=== PATIENT | female | born 1940 | race Caucasian/White ===

== ENCOUNTER → 2017-08-14 | Outpatient (REF) | payer MEDICARE ==
[~2017-08-14] MED LIST: VITAMIN D
[2017-08-14 19:35] LABS: MEAN CORPUSCULAR HEMOGLOBIN 30.6 pg (27.0-33.0); MEAN CORPUSCULAR HGB CONC 33.3 g/dl (32.0-36.5); PLATELET COUNT, AUTOMATED 206 10^3/uL (150-450); RED CELL DISTRIBUTION WIDTH 12.9 % (11.5-14.5); WHITE BLOOD COUNT 6.7 10^3/uL (4.0-10.0)
[2017-08-14 19:48] LABS: ALBUMIN 3.8 GM/DL (3.2-5.2); ALBUMIN/GLOBULIN RATIO 1.12 (1.00-1.93); ALKALINE PHOSPHATASE 54 U/L (45-117); ALT/SGPT 17 U/L (12-78); ANION GAP 7 MEQ/L (8-16); AST/SGOT 13 U/L (15-37); BILIRUBIN,TOTAL 0.5 MG/DL (0.2-1.0); BLOOD UREA NITROGEN 16 MG/DL (7-18); CALCIUM LEVEL 9.2 MG/DL (8.8-10.2); CARBON DIOXIDE LEVEL 30 MEQ/L (21-32); CHLORIDE LEVEL 105 MEQ/L (98-107); CHOLESTEROL LEVEL 218 MG/DL (<200); CREATININE FOR GFR 0.83 MG/DL (0.55-1.02); FREE T4 1.13 NG/DL (0.76-1.46); GLOMERULAR FILTRATION RATE > 60.0 (>39); GLUCOSE, FASTING 91 MG/DL (83-110); POTASSIUM SERUM 4.2 MEQ/L (3.5-5.1); SODIUM LEVEL 142 MEQ/L (136-145); TOTAL PROTEIN 7.2 GM/DL (6.4-8.2); TRIGLYCERIDES LEVEL 107 MG/DL (<150)
== END ==
LOC: M SFHCADAM 14:10
PROVIDERS: ATTEND Family Medicine
DX: M81.0 Age-related osteoporosis without current pathological fracture (principal); E55.9 Vitamin D deficiency, unspecified; E78.2 Mixed hyperlipidemia; M15.0 Primary generalized (osteo)arthritis

== ENCOUNTER → 2017-09-16 | Outpatient (CLI) | payer MEDICARE ==
--- NOTE | 2017-09-16 09:53 | REPMRS ---
Patient History The patient states she has not had a clinical breast exam in over a year. Patient is postmenopausal. Family history of breast cancer in daughter at age 37. Digital Woman Screen Mammo: September 16, 2017 - Exam #: [id number] Bilateral CC and MLO view(s) were taken. Technologist: Amanda Garcia Technologist Prior study comparison: August 07, 2016, right breast digital mammo diagnostic unilateral, performed at [facility]. July 21, 2016, digital woman screen mammo performed at [facility]. FINDINGS: The breast tissue is heterogeneously dense. This may lower the sensitivity of mammography. There has been no change in the appearance of the mammogram from the prior studies. There is a moderate amount of residual fibroglandular tissue which is fairly symmetric. There is no interval development of dominant mass, areas of architectural distortion, or clustered microcalcification typical of malignancy. ASSESSMENT: BI-RADS/ACR category 1 mammogram. Negative. Recommendation Routine screening mammogram in 1 year (for women over age 40). This mammogram was interpreted with the aid of an FDA-approved computer-aided dectection system. Electronically Signed By: Deepak Terrazas MD 09/16/17 0953
== END ==
LOC: M WHC 07:53
PROVIDERS: ATTEND Family Medicine
DX: Z12.31 Encounter for screening mammogram for malignant neoplasm of breast (principal)

== ENCOUNTER 2017-10-13 12:44 | Outpatient (CLI) | payer MEDICARE ==
[~2017-10-13] VITALS: Ht 167.6 cm; Wt 122.0 kg
[2017-10-13] MEDS ORDERED: ZOLEDRONIC ACID 5 MG in APPROPRIATE DILUENT 1 EA IV ONE (12:45)
== END 2017-10-13 13:50 | disposition home or self-care (01) ==
LOC: M INFU 12:44
PROVIDERS: ATTEND Family Medicine
DX: M81.0 Age-related osteoporosis without current pathological fracture (principal); Z87.891 Personal history of nicotine dependence
CPT/HCPCS: 96365; J3489

== ENCOUNTER → 2018-08-23 | Outpatient (REF) | payer MEDICARE | LOC: M LAB REF 19:00 | DX: D03.30 Melanoma in situ of unspecified part of face (principal); L57.0 Actinic keratosis; L57.8 Other skin changes due to chronic exposure to nonionizing radiation | CPT/HCPCS: 88305 ==

== ENCOUNTER → 2018-10-21 | Outpatient (CLI) | payer MEDICARE ==
--- NOTE | 2018-10-21 15:38 | REPMRS ---
Patient History The patient states she has not had a clinical breast exam in over a year. Patient is postmenopausal. Family history of breast cancer at age 37 in daughter. No Hormone Replacement Therapy 3D TOMOSYNTHESIS WAS PERFORMED. Digital Woman Screen Mammo: October 21, 2018 - Exam #: [id number] Bilateral CC and MLO view(s) were taken. Technologist: Ashia Keith, Technologist Prior study comparison: September 16, 2017, digital woman screen mammo performed at [facility]. August 07, 2016, right breast digital mammo diagnostic unilateral, performed at [facility]. FINDINGS: The breast tissue is heterogeneously dense. This may lower the sensitivity of mammography. There has been no change in the appearance of the mammogram from the prior studies. There is a moderate amount of residual fibroglandular tissue which is fairly symmetric. There is no interval development of dominant mass, areas of architectural distortion, or clustered microcalcification typical of malignancy. Assessment: BI-RADS/ACR category 1 mammogram. Negative. Recommendation Routine screening mammogram in 1 year (for women over age 40). This mammogram was interpreted with the aid of an FDA-approved computer-aided dectection system. Electronically Signed By: Deepak Terrazas MD 10/21/18 [id number]
== END ==
LOC: M WHC 14:19
PROVIDERS: ATTEND Family Medicine
DX: Z12.31 Encounter for screening mammogram for malignant neoplasm of breast (principal); Z80.3 Family history of malignant neoplasm of breast; N60.31 Fibrosclerosis of right breast; N60.32 Fibrosclerosis of left breast

== ENCOUNTER 2018-12-06 09:44 | Outpatient (CLI) | payer MEDICARE ==
[~2018-12-06] VITALS: Ht 167.6 cm; Wt 55.9 kg
[2018-12-06 10:25] VITALS: BP 144/63
[2018-12-06] MEDS ORDERED: ZOLEDRONIC ACID 5 MG in APPROPRIATE DILUENT 1 EA IV ONE (10:30)
[2018-12-06] MEDS ORDERED: CALCTAB89 PO (10:41)
[2018-12-06 11:15] VITALS: BP 132/73
== END 2018-12-06 11:15 | disposition home or self-care (01) ==
LOC: M INFU 09:44
PROVIDERS: ATTEND Family Medicine
DX: M81.0 Age-related osteoporosis without current pathological fracture (principal)
CPT/HCPCS: 96374; J3489

== ENCOUNTER → 2019-02-28 | Outpatient (REF) | payer MEDICARE ==
[~2019-02-28] MED LIST changes: +CALCTAB89 PO
== END ==
LOC: M SFHCPLAZ 13:47
PROVIDERS: ATTEND Dermatology
DX: L82.1 Other seborrheic keratosis (principal)

== ENCOUNTER → 2019-09-14 | Outpatient (REF) | payer MEDICARE ==
[2019-09-14 12:58] LABS: HEMATOCRIT 41.8 % (36.0-47.0); HEMOGLOBIN 13.8 g/dl (12.0-15.5); MEAN CORPUSCULAR HEMOGLOBIN 31.2 pg (27.0-33.0); MEAN CORPUSCULAR VOLUME 94.4 fl (80.0-96.0); PLATELET COUNT, AUTOMATED 199 10^3/uL (150-450); RED BLOOD COUNT 4.43 10^6/uL (4.00-5.40)
[2019-09-14 13:09] LABS: ALBUMIN 3.7 GM/DL (3.2-5.2); ALT/SGPT 20 U/L (12-78); BILIRUBIN,TOTAL 0.4 MG/DL (0.2-1.0); BLOOD UREA NITROGEN 16 MG/DL (7-18); CALCIUM LEVEL 9.7 MG/DL (8.8-10.2); CARBON DIOXIDE LEVEL 30 MEQ/L (21-32); CHLORIDE LEVEL 107 MEQ/L (98-107); CHOLESTEROL LEVEL 216 MG/DL (<200); CREATININE FOR GFR 0.89 MG/DL (0.55-1.30); FREE T4 1.11 NG/DL (0.76-1.46); GLOMERULAR FILTRATION RATE > 60.0 (>39); GLUCOSE, FASTING 91 MG/DL (70-100); HDL CHOLESTEROL 80 MG/DL (>40); LDL CHOLESTEROL 116 MG/DL (<100); NON-HDL-C 136 MG/DL; POTASSIUM SERUM 4.8 MEQ/L (3.5-5.1); SODIUM LEVEL 142 MEQ/L (136-145); TRIGLYCERIDES LEVEL 101 MG/DL (<150)
[2019-09-14 13:10] LABS: TOTAL 25(OH) VITAMIN D 77.7 NG/ML (30.0-100.0)
== END ==
LOC: M SFHCADAM 09:47
PROVIDERS: ATTEND Family Medicine
DX: E78.2 Mixed hyperlipidemia (principal); E55.9 Vitamin D deficiency, unspecified; F43.22 Adjustment disorder with anxiety

== ENCOUNTER → 2019-12-21 | Outpatient (CLI) | payer MEDICARE ==
--- NOTE | 2019-12-21 15:14 | REP ---
BILATERAL SCREENING DIGITAL MAMMOGRAM WITH 3D TOMOSYNTHESIS: There are no palpable abnormalities or other breast complaints. The the patient states she has not had a clinical breast examination in over a year. The [facility] Lifetime Breast Cancer Risk Score is: 3.9% . Comparison is 04/26/2014. The breasts are heterogeneously dense, which could obscure small masses. There is no dominant mass, micro calcific cluster or architectural distortion that would indicate malignancy. There are benign calcifications. There are no additional findings on 3D tomosynthesiss. There is no change from the prior study. Impression: BIRADS/ACR category 2 mammogram. Benign findings. Recommendation: Routine annual screening mammography. Because of the increased breast density, annual adjunctive breast MRI in addition to screening mammography is recommended. These can be performed at alternating six month intervals. This mammogram was interpreted with the aid of a FDA approved computer-aided detection system. A. Negative mammogram reports should not delay biopsy if a dominant or clinically suspicious mass is present. B. Not all breast cancers are identified by mammography or tomosynthesis. C. Adenosis and dense breasts may obscure an underlying neoplasm. Patient letter M1 dense breasts. Electronically Signed by Deepak Dillon MD 12/21/2019 03:05 P
== END ==
LOC: M WHC 10:49
PROVIDERS: ATTEND Family Medicine
DX: Z12.31 Encounter for screening mammogram for malignant neoplasm of breast (principal)

== ENCOUNTER → 2020-03-07 | Outpatient (REF) | payer MEDICARE | LOC: M LAB REF 18:14 | PROVIDERS: ATTEND Dermatology | DX: D22.39 Melanocytic nevi of other parts of face (principal); L57.8 Other skin changes due to chronic exposure to nonionizing radiation; L57.0 Actinic keratosis ==

== ENCOUNTER → 2020-09-06 | Outpatient (REF) | payer MEDICARE ==
[2020-09-06 16:51] LABS: ALBUMIN 3.8 GM/DL (3.2-5.2); ALT/SGPT 17 U/L (12-78); BILIRUBIN,TOTAL 0.4 MG/DL (0.2-1.0); BLOOD UREA NITROGEN 13 MG/DL (7-18); CALCIUM LEVEL 9.3 MG/DL (8.8-10.2); CARBON DIOXIDE LEVEL 29 MEQ/L (21-32); CHLORIDE LEVEL 106 MEQ/L (98-107); CHOLESTEROL LEVEL 222 MG/DL (<200); CHOLESTEROL RISK RATIO 2.775 (<5); CREATININE FOR GFR 0.93 MG/DL (0.55-1.30); FREE T4 1.21 NG/DL (0.76-1.46); GLOMERULAR FILTRATION RATE > 60.0 (>39); GLUCOSE, FASTING 107 MG/DL (70-100); HDL CHOLESTEROL 80 MG/DL (>40); LDL CHOLESTEROL 126 MG/DL (<100); NON-HDL-C 142 MG/DL; POTASSIUM SERUM 4.4 MEQ/L (3.5-5.1); SODIUM LEVEL 141 MEQ/L (136-145); TOTAL PROTEIN 6.7 GM/DL (6.4-8.2); TRIGLYCERIDES LEVEL 78 MG/DL (<150)
[2020-09-06 16:58] LABS: TOTAL 25(OH) VITAMIN D 87.5 NG/ML (30.0-100.0)
== END ==
LOC: M SFHCADAM 11:38
PROVIDERS: ATTEND Family Medicine
DX: M81.0 Age-related osteoporosis without current pathological fracture (principal); E55.9 Vitamin D deficiency, unspecified; E78.2 Mixed hyperlipidemia; F43.22 Adjustment disorder with anxiety

== ENCOUNTER 2021-01-03 15:38 | Outpatient (CLI) | payer MEDICARE ==
[~2021-01-03] VITALS: Ht 167.6 cm; Wt 56.3 kg
[~2021-01-03 15:38] MED LIST changes: +ZOLEDRONIC ACID 5 MG in IV 1 EA IV ONE
[2021-01-03 15:45] VITALS: BP 158/87
[2021-01-03 16:30] VITALS: BP 150/74
== END 2021-01-03 16:30 | disposition home or self-care (01) ==
LOC: M INFU 15:38
PROVIDERS: ATTEND Family Medicine
DX: M81.0 Age-related osteoporosis without current pathological fracture (principal)
CPT/HCPCS: 96365; J3489

== ENCOUNTER → 2021-01-08 | Outpatient (CLI) | payer MEDICARE ==
[~2021-01-08] MED LIST changes: -ZOLEDRONIC ACID 5 MG in IV 1 EA IV ONE
--- NOTE | 2021-01-08 09:02 | REPMRS ---
Patient History The patient states she has not had a clinical breast exam in over a year. Family history of breast cancer at age 37 in daughter. No Hormone Replacement Therapy Digital Woman Screen Mammo: January 08, 2021 - Exam #: [id number] Bilateral CC and MLO view(s) were taken. Technologist: Maryjo Dowell, Technologist Prior study comparison: December 21, 2019, bilateral digital woman screen mammo performed at [facility]. October 21, 2018, bilateral digital woman screen mammo performed at [facility]. September 16, 2017, digital woman screen mammo performed at [facility]. FINDINGS: The breast tissue is heterogeneously dense. This may lower the sensitivity of mammography. The [facility] volumetric breast density category is: C. There is a moderate amount of heterogeneously dense fibroglandular tissue which is fairly symmetric. There is no interval development of dominant mass, architectural distortion, or grouped microcalcification typical of malignancy. There has been no change in the appearance of the mammogram from the prior studies. 3-D tomosynthesis shows no additional findings. Assessment: BI-RADS/ACR category 1 mammogram. Negative Mammogram. Recommendation Routine screening mammogram of both breasts in 1 year (for women over age 40). This patient's [facility] Lifetime Breast Cancer RIsk is estimated at 3.4 %. This mammogram was interpreted with the aid of an FDA-approved computer-aided dectection system. Electronically Signed By: Vignesh Chau MD 01/08/21 0901
== END ==
LOC: M WHC 08:00
PROVIDERS: ATTEND Family Medicine
DX: Z12.31 Encounter for screening mammogram for malignant neoplasm of breast (principal)

== ENCOUNTER → 2021-01-30 | Outpatient (CLI) | payer MEDICARE ==
--- NOTE | 2021-01-30 09:40 | REP ---
INDICATION: ARTHRITIS. COMPARISON: 06/19/2016. TECHNIQUE: There are five views. FINDINGS: There is diffuse demineralization. Vertebral body heights, interspacing and alignment are normal except for mild grade 1 anterolisthesis of L4 on 5. This is unchanged and likely secondary to the facet osteoarthritis and joint space narrowing. There is no spondylolysis or spondylolisthesis. There is disc calcification at L2-3 compatible with degenerative disc disease, however no disc space narrowing. There is facet osteoarthritis more severe at the lower lumbar levels, unchanged. The pedicles are unremarkable. Sacroiliac articulations are unremarkable. There is mild scoliosis convex left as an interval change, possibly positional. And unchanged. There are no compression deformities. IMPRESSION: There is no significant interval change except for disc calcification now visible at L2-3 compatible with degenerative disc disease, however there is no associated disc space narrowing. Facet osteoarthritis, more severe at the lower lumbar levels, resulting in degenerative mild grade 1 spondylolisthesis of L4 on 5. This is unchanged. Demineralization. Mild scoliosis convex left as an interval change, possibly positional. <Electronically signed by Deepak Dillon > 01/30/21 0936
--- NOTE | 2021-01-30 09:43 | REP ---
INDICATION: ARTHRITIS COMPARISON: None. TECHNIQUE: There are four views. FINDINGS: There is erosive osteoarthritis of the index finger through 5th digit PIP articulations. The middle finger PIP is fused as a chronic arthritic change. There is joint space narrowing and cortical eburnation of the DIP articulations of the index through ring fingers compatible with osteoarthritis. There is fusion of the 5th digit DIP compatible with chronic osteoarthritis. The MCP articulations and thumb IP articulation are unremarkable. There is osteoarthritis at the scaphoid trapezial articulation. There is diffuse demineralization. There calcifications in the triangular fibrocartilage compatible with CPPD. IMPRESSION: Advanced osteoarthritis as described. CPPD as described. <Electronically signed by Deepak Dillon > 01/30/21 0937
== END ==
LOC: M ADAMS 08:51
PROVIDERS: ATTEND Family Medicine
DX: M51.36 Other intervertebral disc degeneration, lumbar region (principal); M19.041 Primary osteoarthritis, right hand; M54.5 Low back pain

== ENCOUNTER → 2021-02-25 | Outpatient (CLI) | payer MEDICARE ==
--- NOTE | 2021-02-25 09:55 | REP ---
INDICATION: PAIN RIGHT KNEE. COMPARISON: None. TECHNIQUE: AP, lateral, bilateral oblique, sunrise and tunnel views of the right knee. FINDINGS: Age-related osteopenia and advanced tricompartmental osteoarthritic degenerative changes are appreciated. Findings include cortical irregularity, osteophytosis, subchondral sclerosis, joint space narrowing, and chondrocalcinosis. There is no evidence for acute fracture or dislocation. Lateral view demonstrates presumed musculotendinous calcifications presumed to be within the quadriceps superior to the patella. IMPRESSION: Advanced tricompartmental osteoarthritic degenerative changes. <Electronically signed by Bobby Sharma > 02/25/21 0906
== END ==
LOC: M SOG 07:51
PROVIDERS: ATTEND Orthopaedic Surgery Sports Medicine
DX: M17.11 Unilateral primary osteoarthritis, right knee (principal)

== ENCOUNTER 2021-05-05 15:32 | Inpatient (IN) | payer MEDICARE ==
[~2021-05-05] VITALS: Ht 167.6 cm; Wt 57.1 kg
[2021-05-05 16:30] LABS: BASO # 0.1 10^3/uL (0.0-0.2); BASO % 0.4 % (0.0-1.0); EOS # 0.1 10^3/uL (0.0-0.5); EOS % 0.9 % (0.0-3.0); HEMATOCRIT 38.1 % (36.0-47.0); HEMOGLOBIN 12.6 g/dl (12.0-15.5); LYMPH # 1.7 10^3/uL (1.5-5.0); LYMPH % 14.7 % (24.0-44.0); MEAN CORPUSCULAR HEMOGLOBIN 30.5 pg (27.0-33.0); MEAN CORPUSCULAR HGB CONC 33.1 g/dl (32.0-36.5); MEAN CORPUSCULAR VOLUME 92.3 fl (80.0-96.0); MONO # 0.6 10^3/uL (0.0-0.8); MONO % 5.7 % (2.0-8.0); NEUTROPHILS # 8.7 10^3/uL (1.5-8.5); NEUTROPHILS % 76.4 % (36.0-66.0); PLATELET COUNT, AUTOMATED 173 10^3/uL (150-450); RED BLOOD COUNT 4.13 10^6/uL (4.00-5.40); WHITE BLOOD COUNT 11.3 10^3/uL (4.0-10.0)
--- NOTE | 2021-05-05 16:50 | REP ---
INDICATION: trauma Nontraumatic hip pain. COMPARISON: None. TECHNIQUE: Frontal view of the pelvis with neutral and frog lateral views of the right hip. FINDINGS: Acute angulated right femoral neck fracture. Nondisplaced fracture of the right inferior pubic ramus is also noted. IMPRESSION: Acute angulated fracture of the right femoral neck and nondisplaced fracture of the right inferior pubic ramus. <Electronically signed by Bobby Sharma > 05/05/21 [id number]
--- NOTE | 2021-05-05 16:51 | REP ---
INDICATION: fall COMPARISON: None. TECHNIQUE: Portable AP view of the chest FINDINGS: The mediastinum and cardiac silhouette are within normal limits for portable technique. The lung marroquin are clear without acute consolidation, effusion, or pneumothorax. Skeletal structures are intact. IMPRESSION: No acute cardiopulmonary process appreciated. <Electronically signed by Bobby Sharma > 05/05/21 [id number]
[2021-05-05 16:52] LABS: BLOOD UREA NITROGEN 16 MG/DL (7-18); CALCIUM LEVEL 8.6 MG/DL (8.8-10.2); CARBON DIOXIDE LEVEL 28 MEQ/L (21-32); CHLORIDE LEVEL 107 MEQ/L (98-107); CREATININE FOR GFR 0.82 MG/DL (0.55-1.30); GLOMERULAR FILTRATION RATE > 60.0 (>39); GLUCOSE, FASTING 100 MG/DL (70-100); POTASSIUM SERUM 3.6 MEQ/L (3.5-5.1); SODIUM LEVEL 143 MEQ/L (136-145)
[2021-05-05 18:00] LABS: INR 0.99; PROTHROMBIN TIME 13.3 SECONDS (12.5-14.3)
[2021-05-05 18:01] LABS: PARTIAL THROMBOPLASTIN TIME 27.5 SECONDS (24.2-38.5)
[2021-05-05] MEDS ORDERED: NALOXONE INJ 0.4MG/1ML VIAL (J2310 PER 1MG) IV PRN (18:15)
[2021-05-05] MEDS ORDERED: MORPHINE 4 MG/ML 1ML VIAL/SYRINGE (J2270) IV PRN (18:15)
[2021-05-05] MEDS ORDERED: NORCO, ANEXSIA 5/325MG TABLET (HYDROcodone/ACETAMINOPHEN) PO PRN (18:15)
[2021-05-05 18:24] LABS: RSV AMPLIFICATION NEGATIVE (NEGATIVE)
[2021-05-05] MEDS: METOPROLOL 5 MG/5 ML VIAL IV SCH ×2 (18:25→19:10)
--- NOTE | 2021-05-05 18:26 | CR ---
CONSULTATION DATE: 05/05/2021 REASON FOR CONSULTATION: Right hip pain. CHIEF COMPLAINT: Right hip pain. HISTORY OF PRESENT ILLNESS: The patient is a 80-year-old, very active healthy lady who was cleaning in the kitchen today when she tripped over her feet and fell onto her right hip with severe onset of pain in her right hip and with inability to bear weight. She presented to the emergency department for evaluation and orthopedics was consulted after determining she had a right hip fracture. Otherwise, she has no other areas of pain to speak of. PAST MEDICAL HISTORY: Noncontributory. PAST SURGICAL HISTORY: Noncontributory. MEDICATIONS: None. ALLERGIES: None. SOCIAL HISTORY: She is very active. She walks four to five miles every day. REVIEW OF SYSTEMS: A 10-point review of systems was reviewed and all are negative except as in the history of present illness (HPI). PHYSICAL EXAMINATION: GENERAL: Well-developed, well-nourished, no acute distress. NEUROLOGIC: Alert and oriented times four. PSYCHOLOGIC: Normal mood and affect. CARDIAC: Regular rate and rhythm. RESPIRATORY: Nonlabored breathing. Equal chest rise and fall. ABDOMEN: Nontender. SKIN: Intact, no ecchymosis, swelling or breaks in the skin. MUSCULOSKELETAL: Focused exam of the right lower extremity demonstrates a shortened and externally rotated right lower extremity. The patient has limited range of motion of the knee and hip secondary to pain in the hip alone. She has tenderness to palpation to groin. No tenderness to palpation in the thigh, knee, leg, ankle or foot. She has sensation intact to light touch in the sural, saphenous, deep peroneal (DP) and superficial peroneal (SP) and tibial nerves. Motor intact to exterior hallucis longus (EHL), flexor hallucis longus (FHL), gastroc soleus complex, tibialis anterior. She has 2+ dorsalis pedis (DP) and posterior tibialis (PT) pulses with brisk capillary refill in all the digits. IMAGING DATA: I reviewed the radiographs of the right hip. They demonstrate a displaced femoral neck fracture as well as a nondisplaced inferior pubic ramus fracture. ASSESSMENT: This is a 80-year-old female with a right displaced femoral neck fracture. PLAN: I had a long discussion with the patient about the nature of the condition and treatment options. Because I have a limited expertise in hip arthroplasty, I have discussed this with another one of the surgeons who is willing to take on her case, Dr. Betancourt. She is going to be admitted tonight by hospitalist and will likely go to the operating room tomorrow for a right hip arthroplasty. I will be transferring her orthopedic care to Dr. Betancourt tomorrow.
[2021-05-05] MEDS ORDERED: LEVALBUTEROL 1.25 MG/0.5 ML CONCENTRATE NEB INH PRN (18:35)
[2021-05-05] MEDS ORDERED: ONDANSETRON 4MG/2ML VIAL IV ONE (19:00)
[2021-05-05] MEDS ORDERED: D31000TA2 PO (19:03)
[2021-05-05 19:10] VITALS: BP_SYST 133
[2021-05-05] MEDS ORDERED: CALC600T86 PO (19:15)
--- NOTE | 2021-05-05 19:17 | HPE ---
HISTORY AND PHYSICAL DATE OF ADMISSION: 05/05/2021 CHIEF COMPLAINT: Fall, right hip fracture. HISTORY OF PRESENT ILLNESS: A 80-year-old, DO NOT RESUSCITATE (DNR)/DO NOT INTUBATE (DNI) female with history of vitamin D deficiency, osteoporosis on chronic Reclast, vitamin D and calcium, osteoarthritis, and colonic polyp in 2012, which was not retrieved, prior history of tubal ligation and bilateral cataract, surgery, was in her usual state of health until today when she fell in the kitchen, as she was turning, fell on her right side, injuring her right hip without loss of consciousness or head trauma. Patient had no prodromal symptoms. Denies any chest pain, pressure, tightness, lightheadedness or dizziness prior to that episode. She had no fever, chills, cough, shortness of breath, nausea, vomiting, diarrhea, hematemesis, coffee-ground emesis, bright red blood per rectum, melena, black tarry stools. Denies any dysuria, urgency, frequency, fever, chills, flank pain, muscle aches, joint pain and had no loss of consciousness. In the emergency room (ER), she was found to have right hip fracture as well as pubic fractures. Her called for help and she was brought in by ambulance. Per orthopedic surgery, patient will be taken to the operating room (OR) in the morning for right hip open reduction internal fixation (ORIF). Otherwise, denies any prior history of coronary artery disease (CAD), myocardial infarction (MO) or congestive heart failure. Blood pressure in the ER was 178/85 with pulse 96, given two doses of intravenous (IV) metoprolol and given as needed metoprolol 25 mg every 6 hours. Her pain was 5/10. No medications were taken at home. In the hospital, she was given intravenous Morphine 3 mg every 2 hours for breakthrough pain and [place] 1-2 tablets for pain. PAST MEDICAL HISTORY: 1. Osteoporosis. 2. Asthma. 3. Arthritis. 4. Vitamin D deficiency. 5. Colonic polyp. ALLERGIES: No known drug allergies. PAST SURGICAL HISTORY: 1. Tubal ligation. 2. Colonoscopy with colon polyp. 3. Bilateral cataract surgery. FAMILY HISTORY: Mother and father are . Mother had rheumatoid arthritis (RA) and hypertension. Both siblings of stomach cancer. SOCIAL HISTORY: Former smoker. Quite more than 10 years ago. Retired. No recreational drug use. Previously worked in day care. Walks daily. . Lives with spouse at home. HOME MEDICATIONS: 1. Reclast IV 2. vitamin D 2000 units daily 3. calcium with vitamin D 600/400 mg one tablet twice a day 4. Advil 200 mg as needed every 6 hours. 5. vitamin B12 100 mcg daily 6. tumeric 7. flaxseed oil REVIEW OF SYSTEMS: As per history of present illness (HPI). A 12-point system otherwise negative. PHYSICAL EXAMINATION: VITAL SIGNS: Temperature 97.2, pulse 96, respiratory rate 18, blood pressure 178/85, 95% on room air. GENERAL: Patient is awake, alert, oriented times three. Speech is fluent. HEENT: Tongue is midline. Face is symmetric. No jugular venous distention (JVD), thyromegaly or cervical adenopathy. LUNGS: Clear to auscultation. No wheezing, rales or rhonchi. HEART: S1, S2. Sinus rhythm. No murmurs, rubs or gallops. ABDOMEN: Soft, nontender, nondistended. Positive bowel sounds. EXTREMITIES: Right lower extremity is externally rotated, warm to touch, pink skin color. Patient's dorsalis pedis and posterior tibialis pulses are 2+ bilaterally. There is no pitting edema or cyanosis. LABORATORY DATA: EKG: Sinus rhythm, ventricular rate of 108 with an incomplete right bundle branch block. White count 11.3, hemoglobin 12, hematocrit 38, platelet count 173. Sodium 143, potassium 3.6, chloride 107, bicarbonate 28, BUN 16, creatinine 0.82, glucose 100. INR 0.99, PT 13.3, PTT27. Coronavirus-19 is negative. Chest x-ray: No acute cardiopulmonary process. Hip x-ray: Acute angulated right femoral neck fracture, nondisplaced fracture of the inferior pubic ramus is also noted. ASSESSMENT: A 80-year-old female with history of asthma, osteoporosis, vitamin D deficiency, osteoarthritis, presents with a mechanical fall at home with no prodromal symptoms, found to have an acute angulated right femoral neck fracture and right inferior pubic ramus fracture. Patient will be admitted as an inpatient for the following acute issues: 1. Medical clearance. Patient is medically optimized. Patient has been given metoprolol 25 mg by mouth every 6 hours for systolic pressure greater than 150 and diastolic pressure greater than 90. Nebulizer treatment as needed. Currently has clear lungs. No acute coronary ischemic symptoms. No heart failure on chest x-ray. As needed Xopenex for her asthma. Patient is medically optimized to proceed to surgery in the morning. Nothing by mouth (NPO) after midnight. Intravenous (IV) fluids to start at 5:00 a.m. Patient may eat a 2 gram sodium diet this evening. Deep venous thrombosis (DVT) prophylaxis with compression stockings preoperatively. Bedpan and bedrest for now. 2. Right femoral neck fracture. Orthopedic surgery, Dr. Bustamante, has been consulted, Nothing by mouth (NPO) after midnight. Oral and IV pain medications for now. Patient is on no anticoagulant or antiplatelet therapy. May proceed to surgery in the morning. 3. Osteoporosis and history of vitamin D deficiency. Patient has recently received Reclast. She may receive vitamin D postoperatively. 4. History of asthma. As needed nebulizers. 5. CODE STATUS: DO NOT RESUSCITATE (DNR)/DO NOT INTUBATE (DNI). Healthcare proxy present at the bedside.
[2021-05-05] MEDS ORDERED: METOPROLOL TART 25 MG TABLET PO PRN (20:00)
[2021-05-05 22:15] VITALS: BP 150/73
[2021-05-05] MEDS: NORCO, ANEXSIA 5/325MG TABLET (HYDROcodone/ACETAMINOPHEN) PO PRN (22:22)
[2021-05-05] MEDS ORDERED: ONDANSETRON 4MG/2ML VIAL IV PRN (23:00)
[2021-05-06] MEDS ORDERED: D5W/0.45% SODIUM CHLORIDE 1,000 ML IV SCH (05:00)
[2021-05-06] MEDS: NORCO, ANEXSIA 5/325MG TABLET (HYDROcodone/ACETAMINOPHEN) PO PRN (05:16)
[2021-05-06 06:00] VITALS: BP 158/74
[2021-05-06 08:48] LABS: HEMOGLOBIN 12.3 g/dl (12.0-15.5); MEAN CORPUSCULAR HEMOGLOBIN 30.4 pg (27.0-33.0); MEAN CORPUSCULAR HGB CONC 33.2 g/dl (32.0-36.5); MEAN CORPUSCULAR VOLUME 91.6 fl (80.0-96.0); PLATELET COUNT, AUTOMATED 137 10^3/uL (150-450); RED BLOOD COUNT 4.04 10^6/uL (4.00-5.40); WHITE BLOOD COUNT 10.4 10^3/uL (4.0-10.0)
[2021-05-06 09:26] LABS: BLOOD UREA NITROGEN 16 MG/DL (7-18); CALCIUM LEVEL 8.4 MG/DL (8.8-10.2); CARBON DIOXIDE LEVEL 26 MEQ/L (21-32); CHLORIDE LEVEL 110 MEQ/L (98-107); CREATININE FOR GFR 0.83 MG/DL (0.55-1.30); GLOMERULAR FILTRATION RATE > 60.0 (>39); GLUCOSE, FASTING 117 MG/DL (70-100); POTASSIUM SERUM 3.7 MEQ/L (3.5-5.1); SODIUM LEVEL 142 MEQ/L (136-145)
--- NOTE | 2021-05-06 10:40 | IPN ---
PROGRESS NOTE DATE: 05/06/2021 SUBJECTIVE: The patient had a low grade temp of 101.1, but denies any chills, nausea, vomiting, abdominal pain, chest pain, pressure, tightness, cough, shortness of breath, dysuria, urgency, or frequency. The patient is n.p.o. for right ORIF of the hip status post fall at home. OBJECTIVE: VITAL SIGNS: Temperature 101.1, pulse 98, respiratory rate 18, blood pressure 158/74, 94% on room air. GENERAL: The patient is awake, alert, and oriented to person, place, and time. Answering questions appropriately. LUNGS: Clear to auscultation. No wheezing, rales, or rhonchi. HEART: S1, S2. Sinus rhythm. ABDOMEN: Soft, nontender, and nondistended. Positive bowel sounds. EXTREMITIES: Right hip is externally rotated. Dorsalis pedis and posterior tibialis intact. SKIN: Warm, dry, and pink in color. DIAGNOSTIC STUDIES: Laboratory data and imaging studies have been reviewed. ASSESSMENT: This is a 80-year-old female with history of asthma, osteoarthritis, osteoporosis, vitamin D deficiency, and colonic polyp who had a mechanical fall at home while walking in the kitchen and had a right femoral neck fracture. The patient was medically optimized to proceed to surgery. Her blood pressure was uncontrolled and she was given metoprolol 25 q. 6 for a systolic pressure greater than 130 or diastolic greater than 90. The patient had a low grade temperature 100.1. Obtain a urinalysis (UA). Continue with incentive spirometry. Chest x-ray had no acute pneumonia. IMPRESSION: 1. Mechanical fall. 2. Medical clearance. The patient is medically optimized to proceed to the operating room for right hip open reduction internal fixation (ORIF). 3. Acute right femoral neck fracture secondary to mechanical fall. 4. Hypertension, uncontrolled currently on metoprolol as needed for systolic pressure greater than 130 or diastolic greater than 90. 5. Osteoporosis and history of vitamin D deficiency status post Reclast. Will resume vitamin D and calcium supplements postoperatively. 6. History of asthma, compensated. 7. Code status. DO NOT RESUSCITATE (DNR) / DO NOT INTUBATE (DNI). 8. Deep vein thrombosis (DVT) prophylaxis currently with compression stockings. Postoperatively the patient may be started on Lovenox or Eliquis.
[2021-05-06] MEDS ORDERED: TRANEXAMIC ACID 100 MG/ML 10ML VIAL As Ordered ONE ×2 (12:51→12:52)
[2021-05-06] MEDS ORDERED: ceFAZolin 1GM VIAL (J0690 PER 500MG) As Ordered ONE (14:02)
[2021-05-06] MEDS ORDERED: ROCURONIUM BROMIDE 50 MG/5 ML VIAL As Ordered ONE ×2 (14:39→15:03)
[2021-05-06] MEDS ORDERED: METOCLOPRAMIDE INJ 10MG/2ML VIAL (J2765 PER 1) As Ordered ONE (14:39)
[2021-05-06] MEDS ORDERED: LIDOCAINE 2% 100MG/5ML SDV (FOR ANES.) As Ordered ONE (14:39)
[2021-05-06] MEDS ORDERED: ONDANSETRON 4MG/2ML VIAL As Ordered ONE (14:39)
[2021-05-06] MEDS ORDERED: SUGAMMADEX SODIUM 500 MG/5 ML VIAL (BRIDION) As Ordered ONE (14:39)
[2021-05-06] MEDS ORDERED: fentaNYL 100 MCG/2 ML INJECTION (J3010) As Ordered ONE (14:39)
[2021-05-06] MEDS ORDERED: propofoL 200 MG/20 ML VIAL As Ordered ONE (14:39)
[2021-05-06] MEDS ORDERED: MIDAZOLAM INJ 2MG/2ML VIAL (J2250 PER 1MG) As Ordered ONE (14:39)
[2021-05-06] MEDS ORDERED: ePHEDrine SULFATE 25 MG/5 ML(5MG/ML) SYRINGE As Ordered ONE (15:25)
[2021-05-06] MEDS ORDERED: PHENYLephrine 500MCG 5ML (100MCG/ML) SYRINGE As Ordered ONE (15:26)
[2021-05-06] MEDS ORDERED: ACETAMINOPHEN 1000MG 100ML IV BTL (OFIRMEV) (J0131 PER 10MG) As Ordered ONE (15:28)
[2021-05-06] MEDS ORDERED: ESMOLOL INJ 100MG/10ML VIAL As Ordered ONE ×2 (15:52→16:06)
[2021-05-06] MEDS ORDERED: ROPIVA 125MG/EPINEPH 0.25MG/CLONID 40MCG/KETOR 15MG IN NS 50ML SYRINGE PA ONE (16:00)
[2021-05-06] MEDS ORDERED: SENNA 8.6 MG TAB (SENOKOT) PO PRN (16:45)
[2021-05-06] MEDS ORDERED: ONDANSETRON 4MG/2ML VIAL IV PRN ×2 (16:45)
[2021-05-06] MEDS ORDERED: fentaNYL 100 MCG/2 ML INJECTION (J3010) IV PRN (16:45)
[2021-05-06] MEDS ORDERED: traMADol 50 MG TAB PO PRN (16:45)
[2021-05-06] MEDS ORDERED: PERCOCET 5MG/325MG TAB PO PRN (16:45)
[2021-05-06] MEDS ORDERED: METOCLOPRAMIDE INJ 10MG/2ML VIAL (J2765 PER 1) IV PRN (16:45)
[2021-05-06] MEDS ORDERED: oxyCODONE 5MG TAB PO PRN ×2 (16:45→16:50)
[2021-05-06] MEDS ORDERED: LR 1,000 ML IV SCH ×2 (16:45)
--- NOTE | 2021-05-06 16:48 | REP ---
INDICATION: POST OP IN PACU. COMPARISON: Preoperative exam yesterday TECHNIQUE: AP pelvis portable FINDINGS: There is a total right hip prosthetic device placed since the last exam. Comminuted fracture involving the inferior pubic ramus on the right again noted. There are no acute abnormalities. IMPRESSION: As above <Electronically signed by Peter Vuong > 05/06/21 [id number]
[2021-05-06 17:00] VITALS: BP 120/66
--- NOTE | 2021-05-06 17:05 | CR.PDOC ---
General Date of Consultation: May 06, 2021 Consultation REASON FOR CONSULTATION/CHIEF COMPLAINT: Right hip subcapital fracture and inferior pubic ramus fracture HISTORY OF PRESENT ILLNESS: Active 80-year-old woman had a mechanical fall yeste rday onto her right hip after tripping while doing some cleaning in the kitchen. Unable to weight-bear was seen in the emergency room and diagnosed with the right hip subcapital fracture and inferior pubic ramus fracture. The patient was admitted to the hospitalist service and was seen by my colleague Dr. Bustamante. The patient was handed over to my care for a right hip hemiarthroplasty. ALLERGIES: Please see below. HOME MEDICATIONS: Please see below. PAST MEDICAL HISTORY: Osteoporosis Remainder noncontributory PAST SURGICAL HISTORY: Noncontributory SOCIAL HISTORY: with adult children. Lives at home with her 85-year-old . She is quite active and walks 4 to 5 miles daily REVIEW OF SYSTEMS: Denies pain aside from her right hip. PHYSICAL EXAMINATION: VITAL SIGNS: Please see below. GENERAL APPEARANCE: Patient is lying in bed in no acute distress EXTREMITIES: Patient's right foot and lower extremity is shortened and internally rotated. She is able to move her toes and her ankle. She is grossly neurovascularly intact to the right foot and ankle. She has a palpable posterior tibial pulse and dorsalis pedis pulse LABORATORY DATA: Please see below. X-ray: X-ray imaging was independently reviewed by myself. This demonstrated the right hip basicervical fracture with displacement. There is also evidence of the right inferior pubic ramus fracture. ASSESSMENT/PLAN: Patient will be taken to the operating room later today for right hip hemiarthroplasty. I have discussed the procedure and the risks and benefits of the procedure with the patient and she has signed consent for this procedure including blood transfusion consent. The patient is n.p.o. on-call to the OR. Vital Signs/I&O Vital Signs Date Time Temp Pulse Resp B/P (MAP) Pulse Ox O2 Delivery O2 Flow Rate FiO2 05/06/21 16:45 99.0 106 18 137/62 (87) 99 Nasal Cannula 2.0 I&O- Last 24 Hours up to 6 AM 05/06/21 06:00 Intake Total 0 ml Output Total 0 ml Balance 0 ml Laboratory Data Labs 24H Laboratory Tests 2 05/05/21 17:37: Prothrombin Time 13.3, Prothromb Time International Ratio 0.99, Activated Partial Thromboplast Time 27.5, Coronavirus (COVID-19)(PCR) NEGATIVE, Influenza Type A (RT-PCR) NEGATIVE, Influenza Type B (RT-PCR) NEGATIVE, Respiratory Syncytial Virus (PCR) NEGATIVE 05/06/21 08:39: Nucleated Red Blood Cells % (auto) 0.0, Anion Gap 6L, Glomerular Filtration Rate > 60.0, Calcium Level 8.4L CBC/BMP Laboratory Tests 05/06/21 08:39 Allergies Coded Allergies: No Known Allergies (Verified , 11/08/08) Home Medications Scheduled Calcium Carbonate (Calcium Carbonate) 600 Mg Tablet, 600 MG PO BID, (Reported) Cholecalciferol (Vitamin D3) (Vitamin D3) 1,000 Unit Tablet, 1,000 UNITS PO DAILY, (Reported) AMRIK REVELES MD May 06, 2021 17:05
--- NOTE | 2021-05-06 17:15 | ROOPDOC ---
[facility] Report of Operation DATE OF PROCEDURE: 05/06/21 PREPROCEDURE DIAGNOSES: Right hip subcapital fracture displaced with right inferior pubic ramus fracture POSTPROCEDURE DIAGNOSES: As above PROCEDURE PERFORMED: Right hip hemiarthroplasty SURGEON: John Reveles MD CHEF DE CUISINE: MONICA assist ANESTHESIA: General ESTIMATED BLOOD LOSS: Approximately less than 150 mL. COMPLICATIONS: No known complication REMARKS: The patient denied any previous hip pain or complaints of right hip osteoarthritis prior to the fall. Press-fit femoral stem was utilized during the procedure as the patient did have some episode of labile blood pressure. Components: [place] Accolade 2 stem size; 0 collar; 46 mm monoblock head FINDINGS: Right hip subcapital fracture no significant evidence of osteoarthritic change to the acetabulum SPECIMENS REMOVED: Femoral head was removed PROCEDURE NOTE: Patient was seen in the preoperative area and the right hip was marked. DESCRIPTION OF PROCEDURE: The patient was taken to the operating room and a general anesthetic was induced after a checklist was performed. The patient was put under general anesthetic in the bed and then transferred to the operating room table where she was then transferred to the left lateral decubitus position with an axillary roll and appropriate padding. She then had a chlorhexidine wash followed by alcohol scrub x2 of her right leg followed by 2 times chlorhexidine sterile prep. She would then had a standard sterile drape performed of the right hip. After a surgical safety checklist was performed and a surgical pause was carried out, the patient was underwent an incision centered over the greater trochanteric region through skin and subcutaneous tissue down to the fascia which was split. Charnley retractor was placed. The abductors were split and a modified Shay approach was utilized. The capsule and abductors were elevated in a single layer. Bleeders were controlled with electrocautery. Once the capsule was violated with the electrocautery hematoma was expressed. This was suction. Active bleeders were controlled with electrocautery. The split was carried proximally avoiding the labrum. The fracture site was quite high as it was subcapital. This was identified. Soft tissue was skeletonized off the proximal femur to aid in retraction. The Charnley was repositioned for better view. The fracture leg was elevated and a freshening cut was performed to remove a portion of the femoral neck. This was removed and the cut appeared to be appropriate. A corkscrew T-handle was then used to remove the femoral head which was sized to approximately a 46/47. The 46 mm on checking found to have good suction in the acetabulum and was chosen for the final head size. Attention was turned to the femur where the canal finder as long as the box osteotome and rongeur were used to create an opening posterior laterally. Broaching then occurred using the Accolade 2 system this was done up to a size 6 which was found to be stable with no rotational instability and good fit. This was trialed with a standard neck monoblock hemiarthroplasty and found to provide appropriate leg length and stability. The wound was irrigated and the AXEL local anesthetic cocktail was instilled. The final size 6 Accolade 2 stem was impacted and found to have good fit. The final standard 0 neck trunnion and 46 mm head were impacted. These were reduced and found to have good stability. An irrigation then occurred. Tranexamic acid 2 g topical was instilled followed by some Betadine. This was allowed to soak for about 3 minutes. The capsule was closed with a #1 Vicryl followed by the abductors with Vicryl and running strata fix #1. The fascia was closed with a Vicryl suture #1 follo wed by a running #1 strata fix. The subcutaneous tissue was closed with #1 Vicryl followed by subcutaneous 2.0 Vicryl followed by three-point 0 Monocryl antibacterial subcuticular. Mastisol and Steri-Strips as well as a Mepilex dressing for final coverage. The patient tolerated the procedure well with no known complications PACU x-ray imaging demonstrated the prosthesis in good position without any obvious signs of complication. The patient will be partial weightbearing 50% given the fact that she does have a pubic ramus fracture on that side as well. She will need to mobilize with an ambulatory aid such as a walker. She will likely require some rehabilitation placement as she lives at home with her elderly . JOHN REVELES MD May 06, 2021 17:15
[2021-05-06 17:30] VITALS: BP 121/67
[2021-05-06 18:26] VITALS: BP 120/66
[2021-05-06] MEDS: ACETAMINOPHEN TAB 650MG DOSE (2X325MG) PO SCH (19:38)
[2021-05-06 19:56] VITALS: BP 114/65
[2021-05-06] MEDS ORDERED: ASPIRIN 81MG ENTERIC TABLET PO SCH (21:00)
[2021-05-06 21:08] VITALS: BP 111/63
[2021-05-06] MEDS: DOCUSATE SODIUM 100MG CAPSULE PO SCH (21:20)
[2021-05-06] MEDS: NAPROXEN 250 MG TAB PO SCH (21:20)
[2021-05-06] MEDS: ceFAZolin SOD 2 GM in IV 1 EA IV SCH (21:21)
[2021-05-06] MEDS: ENOXAPARIN 40MG/0.4ML SYRINGE (J1650 PER 10MG) SC SCH (21:21)
--- NOTE | 2021-05-06 21:22 | ECGEPIP ---
[facility] - ED Test Date: 2021-05-05 Pat Name: MIRANDA GALE Department: Room: - Gender: Female Executive Office Manager: MARIOSYBIL : 1940 Requested By: AMRIK CORONEL Order Number: [id number] Reading MD: Roberta Infante Measurements Intervals [place] Rate: 102 P: 77 [place]: 172 QRS: -29 QRSD: 100 T: 93 QT: 320 QTc: 417 Interpretive Statements Sinus tachycardia with occasional premature ventricular complexes and fusion complexes Incomplete right bundle branch block Minimal voltage criteria for LVH, may be normal variant ( Sumit product ) Septal infarct , age undetermined NSTTW abnormalities No prior Electronically Signed on 05-06-2021 21:21:40 EDT by Roberta Infante
[2021-05-07] MEDS: ACETAMINOPHEN TAB 650MG DOSE (2X325MG) PO SCH ×4 (00:49→17:24)
[2021-05-07 01:33] VITALS: BP 102/60
[2021-05-07] MEDS: ceFAZolin SOD 2 GM in IV 1 EA IV SCH (05:53)
[2021-05-07 06:00] VITALS: BP 101/61
[2021-05-07] MEDS ORDERED: FERR1TAB8 PO (07:58)
[2021-05-07] MEDS ORDERED: TRAM50TA2 PO (07:58)
[2021-05-07 08:31] LABS: BASO % 0.2 % (0.0-1.0); EOS # 0.1 10^3/uL (0.0-0.5); EOS % 1.3 % (0.0-3.0); HEMATOCRIT 33.5 % (36.0-47.0); HEMOGLOBIN 10.8 g/dl (12.0-15.5); LYMPH # 1.3 10^3/uL (1.5-5.0); LYMPH % 12.3 % (24.0-44.0); MEAN CORPUSCULAR HEMOGLOBIN 30.3 pg (27.0-33.0); MEAN CORPUSCULAR HGB CONC 32.2 g/dl (32.0-36.5); MEAN CORPUSCULAR VOLUME 94.1 fl (80.0-96.0); MONO # 0.5 10^3/uL (0.0-0.8); MONO % 4.9 % (2.0-8.0); NEUTROPHILS # 8.4 10^3/uL (1.5-8.5); NEUTROPHILS % 80.7 % (36.0-66.0); PLATELET COUNT, AUTOMATED 129 10^3/uL (150-450); RED BLOOD COUNT 3.56 10^6/uL (4.00-5.40); WHITE BLOOD COUNT 10.4 10^3/uL (4.0-10.0)
[2021-05-07 08:55] LABS: CALCIUM LEVEL 7.9 MG/DL (8.8-10.2); CREATININE FOR GFR 1.21 MG/DL (0.55-1.30); GLOMERULAR FILTRATION RATE 45.7 (>39); MAGNESIUM LEVEL 1.9 MG/DL (1.8-2.4); POTASSIUM SERUM 3.8 MEQ/L (3.5-5.1)
--- NOTE | 2021-05-07 09:46 | IPNPDOC ---
Text Note Date of Service The patient was seen on 05/07/21. NOTE Postop day 1 right hip hemiarthroplasty for fracture with associated right in ferior pubic ramus fracture The patient is doing much better today. She appears to be in better spirits and her pain is much better controlled. She denies any other complaints or concerns Examination of the dressing shows that the incision has not had any significant oozing. There is no staining of the dressing. There is some bruising around the incision. She is able to move her right foot and ankle. She is able to move her toes. She has intact sensation grossly to the right foot and a palpable posterior tibial pulse. Overall the patient appears to be doing much better. I did describe her injuries and the fracture to her. I would recommend high-dose calcium and vitamin C given her osteoporotic bone to help with the healing process. I will see her for follow-up tomorrow morning. She may need some acute rehab depending on how well she does with physical therapy today. She is aware that a hip fracture is not like a hip replacement and that it is a significant event in terms of impacting her lifestyle. X-ray: X-ray imaging taken in the recovery room demonstrates the right hip hemiarthroplasty prosthesis in good position without any obvious signs of complication. She will be 50% weightbearing due to the inferior pubic ramus fracture. Her weightbearing status will be reevaluated in 2 weeks. VS,Nishbone, I+O VS, Fishbone, I+O Laboratory Tests 05/07/21 08:14 Vital Signs Date Time Temp Pulse Resp B/P (MAP) Pulse Ox O2 Delivery O2 Flow Rate FiO2 05/07/21 06:00 98.6 88 18 101/61 (74) 96 Room Air 05/07/21 01:33 2.0 I&O- Last 24 Hours up to 6 AM 05/07/21 06:00 Intake Total 2400 ml Output Total 700 ml Balance 1700 ml AMRIK REVELES MD May 07, 2021 09:46
[2021-05-07] MEDS: ASCORBIC ACID 500 MG TAB PO SCH (09:54)
[2021-05-07] MEDS: FERROUS SULFATE 325MG TAB PO SCH (09:54)
[2021-05-07] MEDS: DOCUSATE SODIUM 100MG CAPSULE PO SCH ×2 (09:54→21:00)
[2021-05-07] MEDS: NAPROXEN 250 MG TAB PO SCH ×2 (09:54→21:26)
[2021-05-07 10:00] VITALS: BP 91/50
[2021-05-07] MEDS ORDERED: NS 500 ML IV ONE (11:45)
[2021-05-07 12:00] VITALS: BP 140/74
[2021-05-07] MEDS: NS 1,000 ML IV SCH (12:08)
--- NOTE | 2021-05-07 12:14 | REP ---
INDICATION: Fever. COMPARISON: Comparison chest x-ray May 05, 2021 TECHNIQUE: Portable upright AP chest radiograph. FINDINGS: The lungs are well inflated and free of infiltrate. Pleural angles are sharp. Heart size is normal. Pulmonary vasculature is not increased. IMPRESSION: No active disease. <Electronically signed by Vignesh Chau > 05/07/21 [id number]
--- NOTE | 2021-05-07 12:28 | IPNPDOC ---
Text Note Date of Service The patient was seen on 05/07/21. NOTE Subjective: Patient is a 80-year-old female with a PMHx of Vitamin D deficiency, Osteoporosis, Osteoarthritis, who presented after she had fallen while in the kitchen. On arrival to emergency room, patient was found to have a right hip fracture. Patient was admitted to the hospital service for further evaluation and treatment and orthopedic surgery was called on consultation Patient was seen and examined at the bedside. Patient is continued to work with physical therapy. She denies any chest pain, short of breath, palpitations, nausea, vomiting, abdominal pain or diarrhea. Denies any urinary discomfort. Objective: Vitals (See below) General: Lying in bed, no acute distress, comfortable, AAOx3 HEENT: NC, AT CVS: +S1S2 Lungs: Fair air entry b/l, -w/r/r Abdomen: Soft, ND, NT Extremities: - Edema, - Calf tenderness Imaging: Hip/Pelvis XR 05/05: Acute angulated fracture of the right femoral neck and nondisplaced fracture of the right inferior pubic ramus. CXR 05/05: No acute cardiopulmonary process appreciated. Pelvis XR 05/05: There is a total right hip prosthetic device placed since the last exam. Comminuted fracture involving the inferior pubic ramus on the right again noted. There are no acute abnormalities. Assessment and plan: Acute angulated fracture of the right femoral neck and nondisplaced fracture of the right inferior pubic ramus - 2/2 mechanical fall - s/p Right hip hemiarthroplasty with Dr. Betancourt on 05/06 - c/w pain control - c/w PT and OT; awaiting clearance - Orthopedic surgery on consultation; appreciate their input Low grade temperature - This morning patient was noted to have a fever 100.5 F - Will check UA / CXR - Will hold off on antibiotics at this time Hypertension - BP well controlled - c/w Metoprolol with hold parameters Osteoporosis / Vitamin D deficiency - c/w supplementation on discharge Chronic Asthma - No evidence of decompensation - c/w inhaled therapy as ordered DVT prophylaxis - c/w Lovenox Code status: - DNR / DNI Disposition: - Transition to ALC status - Awaiting sub-acute rehabilitation / clearance from PT VS,Arsen, I+O VS, Arsen, I+O Laboratory Tests 05/07/21 08:14 Vital Signs Date Time Temp Pulse Resp B/P (MAP) Pulse Ox O2 Delivery O2 Flow Rate FiO2 05/07/21 12:00 98.8 140/74 (96) 05/07/21 10:00 89 17 96 Room Air 05/07/21 01:33 2.0 I&O- Last 24 Hours up to 6 AM 05/07/21 06:00 Intake Total 2400 ml Output Total 700 ml Balance 1700 ml MARGIE CLARK MD May 07, 2021 12:28
[2021-05-07 14:00] VITALS: BP 120/67
[2021-05-07 21:25] VITALS: BP 113/66
[2021-05-07] MEDS: ENOXAPARIN 40MG/0.4ML SYRINGE (J1650 PER 10MG) SC SCH (21:26)
[2021-05-08] MEDS: NS 1,000 ML IV SCH (04:25)
[2021-05-08] MEDS: ACETAMINOPHEN TAB 650MG DOSE (2X325MG) PO SCH ×3 (05:29→12:42)
[2021-05-08 05:41] VITALS: BP 114/65
[2021-05-08 07:30] LABS: BASO % 0.3 % (0.0-1.0); EOS # 0.5 10^3/uL (0.0-0.5); EOS % 7.1 % (0.0-3.0); HEMATOCRIT 31.1 % (36.0-47.0); HEMOGLOBIN 10.3 g/dl (12.0-15.5); LYMPH % 13.1 % (24.0-44.0); MEAN CORPUSCULAR HEMOGLOBIN 30.9 pg (27.0-33.0); MEAN CORPUSCULAR HGB CONC 33.1 g/dl (32.0-36.5); MEAN CORPUSCULAR VOLUME 93.4 fl (80.0-96.0); MONO # 0.5 10^3/uL (0.0-0.8); MONO % 6.8 % (2.0-8.0); NEUTROPHILS # 5.3 10^3/uL (1.5-8.5); PLATELET COUNT, AUTOMATED 117 10^3/uL (150-450); RED BLOOD COUNT 3.33 10^6/uL (4.00-5.40); WHITE BLOOD COUNT 7.4 10^3/uL (4.0-10.0)
[2021-05-08 07:47] LABS: BLOOD UREA NITROGEN 18 MG/DL (7-18); CALCIUM LEVEL 8.5 MG/DL (8.8-10.2); CARBON DIOXIDE LEVEL 29 MEQ/L (21-32); CHLORIDE LEVEL 108 MEQ/L (98-107); CREATININE FOR GFR 0.84 MG/DL (0.55-1.30); GLOMERULAR FILTRATION RATE > 60.0 (>39); GLUCOSE, FASTING 84 MG/DL (70-100); MAGNESIUM LEVEL 2.1 MG/DL (1.8-2.4); POTASSIUM SERUM 4.1 MEQ/L (3.5-5.1); SODIUM LEVEL 142 MEQ/L (136-145)
[2021-05-08] MEDS: NAPROXEN 250 MG TAB PO SCH (08:25)
[2021-05-08] MEDS: FERROUS SULFATE 325MG TAB PO SCH (08:25)
[2021-05-08] MEDS: DOCUSATE SODIUM 100MG CAPSULE PO SCH (08:25)
[2021-05-08] MEDS: ASCORBIC ACID 500 MG TAB PO SCH (08:25)
--- NOTE | 2021-05-08 11:05 | DS.PDOC ---
Discharge Summary General Date of Admission May 05, 2021 at 18:09 Date of Discharge 05/08/2021 Discharge Summary PROCEDURES PERFORMED DURING STAY: Right hip hemiarthroplasty with Dr. Betancourt on 05/06/2021 ADMITTING DIAGNOSES / DISCHARGE DIAGNOSES: Acute angulated fracture of the right femoral neck and nondisplaced fracture of the right inferior pubic ramus - 2/2 mechanical fall s/p Low grade temperature Hypertension Osteoporosis / Vitamin D deficiency Chronic Asthma DVT prophylaxis COMPLICATIONS/CHIEF COMPLAINT: Right hip pain HISTORY OF PRESENT ILLNESS: Patient is a 80-year-old female with a PMHx of Vitamin D deficiency, Osteoporosis, Osteoarthritis, who presented after she had fallen while in the kitchen. On arrival to emergency room, patient was found to have a right hip fracture. Patient was admitted to the hospital service for further evaluation and treatment and orthopedic surgery was called on consultation Patient was seen and examined at the bedside. Currently patient denies any chest pain, sharp spelled palpitations, nausea, vomiting, abdominal pain. She has been working with physical therapy and has been given for discharge home with services. HOSPITAL COURSE: Acute angulated fracture of the right femoral neck and nondisplaced fracture of the right inferior pubic ramus - 2/2 mechanical fall - s/p Right hip hemiarthroplasty with Dr. Betancourt on 05/06 - c/w pain control - c/w PT and OT; crit for discharge home with services - Orthopedic surgery on consultation; appreciate their input - Will have outpatient follow-up with primary care provider and orthopedic surgery within 7 days s/p Low grade temperature - No further fevers noted - CXR negative - Will hold off on antibiotics at this time Hypertension - BP well controlled - c/w Metoprolol with hold parameters Osteoporosis / Vitamin D deficiency - c/w supplementation on discharge Chronic Asthma - No evidence of decompensation - c/w inhaled therapy as ordered DVT prophylaxis - c/w Lovenox DISCHARGE MEDICATIONS: Please see below. ALLERGIES: Please see below. PHYSICAL EXAMINATION ON DISCHARGE: Vitals (See below) General: Sitting up in chair, appears comfortable, AAOx3 HEENT: NC, AT CVS: +S1S2 Lungs: Fair air entry b/l, no appreciable wheezing, rales or rhonchi Abdomen: Soft, nondistended and nontender Extremities: No evidence of edema, - Calf tenderness LABORATORY DATA: Please see below. IMAGING: Hip/Pelvis XR 05/05: Acute angulated fracture of the right femoral neck and nondisplaced fracture of the right inferior pubic ramus. CXR 05/05: No acute cardiopulmonary process appreciated. Pelvis XR 05/05: There is a total right hip prosthetic device placed since the last exam. Comminuted fracture involving the inferior pubic ramus on the right again noted. There are no acute abnormalities. ACTIVITY: [As tolerated]. DISCHARGE PLAN: Please follow-up with primary care provider and orthopedic surgery within the next 7 days Remain compliant with treatment plan and medications Return to the ER if you experience any problems DISPOSITION: Home with services DISCHARGE CONDITION: [Stable]. TIME SPENT ON DISCHARGE: 35 minutes Vital Signs/I&Os Vital Signs Date Time Temp Pulse Resp B/P (MAP) Pulse Ox O2 Delivery O2 Flow Rate FiO2 05/08/21 05:41 97.6 88 18 114/65 (81) 96 Room Air 05/07/21 01:33 2.0 I&O- Last 24 Hours up to 6 AM 05/08/21 06:00 Intake Total 900 ml Output Total 500 ml Balance 400 ml Laboratory Data Labs 24H Laboratory Tests 2 05/07/21 12:27: Procalcitonin 0.14 05/08/21 06:54: Immature Granulocyte % (Auto) 0.7, Neutrophils (%) (Auto) 72.0H, Lymphocytes (%) (Auto) 13.1L, Monocytes (%) (Auto) 6.8, Eosinophils (%) (Auto) 7.1H, Basophils (%) (Auto) 0.3, Neutrophils # (Auto) 5.3, Lymphocytes # (Auto) 1.0L, Monocytes # (Auto) 0.5, Eosinophils # (Auto) 0.5, Basophils # (Auto) 0.0, Nucleated Red Blood Cells % (auto) 0.0, Anion Gap 5L, Glomerular Filtration Rate > 60.0, Calcium Level 8.5L, Magnesium Level 2.1 CBC/BMP Laboratory Tests 05/08/21 06:54 Discharge Medications Scheduled Calcium Carbonate (Calcium Carbonate) 600 Mg Tablet, 600 MG PO BID, (Reported) Cholecalciferol (Vitamin D3) (Vitamin D3) 1,000 Unit Tablet, 1,000 UNITS PO DAILY, (Reported) Ferrous Sulfate (Ferrous Sulfate) 325 Mg Tablet, 325 MG PO DAILY Scheduled PRN Tramadol HCl (Tramadol HCl) 50 Mg Tablet, 50 MG PO Q8HP PRN for MILD PAIN (PS 1- 4) Allergies Coded Allergies: No Known Allergies (Verified , 11/08/08) MARGIE CLARK MD May 08, 2021 11:05
[2021-05-08] MEDS ORDERED: ASPI81TA26 PO (11:06)
[2021-05-08] MEDS ORDERED: ASCO50TA PO (11:09)
== END 2021-05-08 16:20 | disposition home health service (06) | DRG 956 ==
LOC: M ED 15:32 → EDBD 15:32 → M ED INP 18:09 → M MS5PR 22:19
PROVIDERS: ADMIT General Practice; ATTEND Internal Medicine
PROC: 0SRR0JA Replacement of Right Hip Joint, Femoral Surface with Synthetic Substitute, Uncemented, Open Approach (ICD-10-PCS; principal; 2021-05-06 16:00)
DX: S72.001A Fracture of unspecified part of neck of right femur, initial encounter for closed fracture (principal); S32.501A Unspecified fracture of right pubis, initial encounter for closed fracture; J45.909 Unspecified asthma, uncomplicated; M81.0 Age-related osteoporosis without current pathological fracture; I10 Essential (primary) hypertension; E55.9 Vitamin D deficiency, unspecified; M19.90 Unspecified osteoarthritis, unspecified site; Z87.891 Personal history of nicotine dependence; Z79.899 Other long term (current) drug therapy; Z66 Do not resuscitate; R50.82 Postprocedural fever; W18.30XA Fall on same level, unspecified, initial encounter; Y92.009 Unspecified place in unspecified non-institutional (private) residence as the place of occurrence of the external cause

== ENCOUNTER → 2021-05-22 | Outpatient (CLI) | payer MEDICARE ==
[~2021-05-22] MED LIST changes: +ASCO50TA PO; +ASPI81TA26 PO; +CALC600T86 PO; +D31000TA2 PO; +FERR1TAB8 PO; +TRAM50TA2 PO
--- NOTE | 2021-05-22 15:48 | REP ---
INDICATION: ENCOUNTER FOR OTHER SPECIFIED SURGICAL AFTERCARE. COMPARISON: AP pelvis of 05/06/2021 TECHNIQUE: AP and frog-lateral views FINDINGS: There is a total right hip prosthetic device the femoral and acetabular components of which appear well seated and well approximated and unchanged from the prior exam. There is an unchanged inferior pubic ramus fracture. IMPRESSION: No significant change compared to the AP pelvis examination of 05/06/2021 as described above. <Electronically signed by Peter Vuong > 05/22/21 [id number]
--- NOTE | 2021-05-22 15:59 | REP ---
INDICATION: ENCOUNTER FOR OTHER SPECIFIED SURGICAL AFTERCARE. COMPARISON: Right hip series this date. TECHNIQUE: AP standing pelvic radiograph, single-view FINDINGS: Right hip arthroplasty with the prosthesis well aligned in relationship to the enterprise bones. No abnormal lucency along the femoral stem. The inferior pubic ramus fracture on right is again seen. There are no other significant findings. IMPRESSION: 1. Status post right hip arthroplasty with the prosthesis well aligned in relationship to the enterprise bones. Incidental note of a fracture of the inferior pubic ramus on the right. No pelvic tilt is suggested on this exam. <Electronically signed by Kevin Oakley > 05/22/21 [id number]
== END ==
LOC: M SOG 13:02
PROVIDERS: ATTEND Orthopaedic Surgery Adult Reconstructive Orthopaedic Surgery
DX: Z48.89 Encounter for other specified surgical aftercare (principal)

== ENCOUNTER → 2021-06-28 | Outpatient (CLI) | payer MEDICARE ==
--- NOTE | 2021-06-28 09:14 | REP ---
INDICATION: RT HIP MAREK FOLLOW-UP. COMPARISON: Comparison study May 22, 2021. TECHNIQUE: AP view of the pelvis and proximal femurs. Standing view. FINDINGS: A right hip hemiarthroplasty is seen in place unchanged in position from the May 22, 2021 radiograph. There is sclerosis and hypertrophy at an old appearing fracture of the inferior pubic ramus on the right. There is diffuse osteopenia. Left hip joint space is preserved. The visualized bony pelvic ring is otherwise intact. IMPRESSION: Hemiarthroplasty in place right hip in good position. Healing fracture of the inferior pubic ramus on the right. Diffuse osteopenia. <Electronically signed by Vignesh Chau > 06/28/21 [id number]
== END ==
LOC: M SOG 08:52
PROVIDERS: ATTEND Orthopaedic Surgery Adult Reconstructive Orthopaedic Surgery
DX: M85.851 Other specified disorders of bone density and structure, right thigh (principal); Z96.641 Presence of right artificial hip joint; S32.591D Other specified fracture of right pubis, subsequent encounter for fracture with routine healing; X58.XXXD Exposure to other specified factors, subsequent encounter

== ENCOUNTER → 2021-09-11 | Outpatient (REF) | payer MEDICARE ==
[2021-09-11 16:48] LABS: HEMATOCRIT 39.8 % (36.0-47.0); HEMOGLOBIN 13.2 g/dl (12.0-15.5); MEAN CORPUSCULAR HEMOGLOBIN 30.4 pg (27.0-33.0); MEAN CORPUSCULAR HGB CONC 33.2 g/dl (32.0-36.5); MEAN CORPUSCULAR VOLUME 91.7 fl (80.0-96.0); PLATELET COUNT, AUTOMATED 213 10^3/uL (150-450); RED BLOOD COUNT 4.34 10^6/uL (4.00-5.40); WHITE BLOOD COUNT 6.5 10^3/uL (4.0-10.0)
[2021-09-11 17:18] LABS: ALBUMIN 3.7 GM/DL (3.2-5.2); ALT/SGPT 14 U/L (12-78); BILIRUBIN,TOTAL 0.5 MG/DL (0.2-1.0); BLOOD UREA NITROGEN 18 MG/DL (7-18); CARBON DIOXIDE LEVEL 29 MEQ/L (21-32); CHLORIDE LEVEL 105 MEQ/L (98-107); CHOLESTEROL LEVEL 209 MG/DL (<200); CHOLESTEROL RISK RATIO 2.786 (<5); CREATININE FOR GFR 0.82 MG/DL (0.55-1.30); FREE T4 1.22 NG/DL (0.76-1.46); GLOMERULAR FILTRATION RATE > 60.0 (>32); GLUCOSE, FASTING 80 MG/DL (70-100); HDL CHOLESTEROL 75 MG/DL (>40); LDL CHOLESTEROL 116 MG/DL (<100); NON-HDL-C 134 MG/DL; POTASSIUM SERUM 4.3 MEQ/L (3.5-5.1); SODIUM LEVEL 140 MEQ/L (136-145); TOTAL PROTEIN 6.7 GM/DL (6.4-8.2); TRIGLYCERIDES LEVEL 89 MG/DL (<150)
== END ==
LOC: M SFHCADAM 11:29
PROVIDERS: ATTEND Family Medicine
DX: F43.22 Adjustment disorder with anxiety (principal); E78.2 Mixed hyperlipidemia; E55.9 Vitamin D deficiency, unspecified

== ENCOUNTER → 2022-02-06 | Outpatient (CLI) | payer MEDICARE ==
[~2022-02-06] MED LIST changes: -D31000TA2 PO; +VITA100093 PO
== END ==
LOC: M WHC 09:01
PROVIDERS: ATTEND Family Medicine
DX: Z12.31 Encounter for screening mammogram for malignant neoplasm of breast (principal); M81.0 Age-related osteoporosis without current pathological fracture

== ENCOUNTER 2022-03-07 10:48 | Emergency (ER) | payer MEDICARE ==
[~2022-03-07] VITALS: Ht 165.1 cm; Wt 52.9 kg
[2022-03-07] MEDS ORDERED: predniSONE 20 MG TAB PO ONE (14:30)
[2022-03-07] MEDS ORDERED: CEPHALEXIN 500 MG CAP PO ONE (14:30)
[2022-03-07] MEDS ORDERED: CEPH500C PO (14:31)
[2022-03-07] MEDS ORDERED: PRED20TA PO (14:31)
[2022-03-07 14:36] VITALS: BP 146/80
== END 2022-03-07 14:41 | disposition home or self-care (01) ==
LOC: M ED 10:48
DX: L03.211 Cellulitis of face (principal); R22.0 Localized swelling, mass and lump, head; G43.909 Migraine, unspecified, not intractable, without status migrainosus; M81.0 Age-related osteoporosis without current pathological fracture; G62.9 Polyneuropathy, unspecified; Z87.891 Personal history of nicotine dependence; Z79.82 Long term (current) use of aspirin; Z79.899 Other long term (current) drug therapy
CPT/HCPCS: 99283; J7512

== ENCOUNTER → 2022-04-07 | Outpatient (CLI) | payer MEDICARE ==
[~2022-04-07] MED LIST changes: +CEPH500C PO; +PRED20TA PO
[2022-04-07 14:55] LABS: BLOOD UREA NITROGEN 12 MG/DL (7-18); CALCIUM LEVEL 8.9 MG/DL (8.8-10.2); CARBON DIOXIDE LEVEL 30 MEQ/L (21-32); CHLORIDE LEVEL 107 MEQ/L (98-107); CREATININE FOR GFR 0.95 MG/DL (0.55-1.30); GLOMERULAR FILTRATION RATE > 60.0 (>32); GLUCOSE, FASTING 111 MG/DL (70-100); SODIUM LEVEL 142 MEQ/L (136-145)
== END ==
LOC: M ADAMS 10:22
PROVIDERS: ATTEND Family Medicine
DX: M81.0 Age-related osteoporosis without current pathological fracture (principal); E78.2 Mixed hyperlipidemia

== ENCOUNTER 2022-04-14 14:15 | Outpatient (CLI) | payer MEDICARE ==
[2022-04-14 14:20] VITALS: BP 138/78
[2022-04-14] MEDS ORDERED: ZOLEDRONIC ACID 5 MG in IV 1 EA IV ONE (14:30)
[2022-04-14 15:00] VITALS: BP 142/67
== END 2022-04-14 15:05 | disposition home or self-care (01) ==
LOC: M INFU 14:15
PROVIDERS: ATTEND Family Medicine
DX: M81.0 Age-related osteoporosis without current pathological fracture (principal)
CPT/HCPCS: 96365; J3489

== ENCOUNTER → 2022-05-08 | Outpatient (CLI) | payer MEDICARE | LOC: M SOG 08:26 | PROVIDERS: ATTEND Orthopaedic Surgery Adult Reconstructive Orthopaedic Surgery | DX: Z96.641 Presence of right artificial hip joint (principal) ==

== ENCOUNTER → 2022-11-05 | Outpatient (REF) | payer MEDICARE ==
[2022-11-05 13:26] LABS: HEMATOCRIT 40.7 % (36.0-47.0); HEMOGLOBIN 13.1 g/dl (12.0-15.5); MEAN CORPUSCULAR HEMOGLOBIN 30.6 pg (27.0-33.0); MEAN CORPUSCULAR HGB CONC 32.2 g/dl (32.0-36.5); MEAN CORPUSCULAR VOLUME 95.1 fl (80.0-96.0); PLATELET COUNT, AUTOMATED 206 10^3/uL (150-450); RED BLOOD COUNT 4.28 10^6/uL (4.00-5.40); WHITE BLOOD COUNT 7.3 10^3/uL (4.0-10.0)
[2022-11-05 13:55] LABS: ALBUMIN 3.8 G/DL (3.2-5.2); ALKALINE PHOSPHATASE 42 U/L (46-116); ALT/SGPT 13 U/L (7.0-40); AST/SGOT 19 U/L (<34); BILIRUBIN,TOTAL 0.6 MG/DL (0.3-1.2); BLOOD UREA NITROGEN 18 MG/DL (9-23); CALCIUM LEVEL 9.9 MG/DL (8.3-10.6); CARBON DIOXIDE LEVEL 31 MMOL/L (20-31); CHLORIDE LEVEL 102 MMOL/L (98-107); CHOLESTEROL LEVEL 198 MG/DL (<200); CHOLESTEROL RISK RATIO 2.77 (<5); CREATININE FOR GFR 0.91 MG/DL (0.55-1.30); GLOMERULAR FILTRATION RATE > 60.0 (>32); GLUCOSE, FASTING 84 MG/DL (74-106); HDL CHOLESTEROL 71.4 MG/DL (>40); NON-HDL-C 127 MG/DL; POTASSIUM SERUM 4.3 MMOL/L (3.5-5.1); SODIUM LEVEL 139 MMOL/L (136-145); TOTAL PROTEIN 6.7 G/DL (5.7-8.2); TRIGLYCERIDES LEVEL 98 MG/DL (<150)
[2022-11-05 13:57] LABS: FREE T4 1.22 NG/DL (0.89-1.76); THYROID STIMULATING HORMONE 2.228 uIU/ML (0.55-4.78)
[2022-11-05 14:02] LABS: TOTAL 25(OH) VITAMIN D 95.8 NG/ML (20.0-100.0)
== END ==
LOC: M SFHCADAM 09:26
PROVIDERS: ATTEND Family Medicine
DX: M81.0 Age-related osteoporosis without current pathological fracture (principal); E78.2 Mixed hyperlipidemia

== ENCOUNTER → 2023-03-16 | Outpatient (CLI) | payer MEDICARE | LOC: M WHC 08:19 | PROVIDERS: ATTEND Family Medicine | DX: Z12.31 Encounter for screening mammogram for malignant neoplasm of breast (principal) ==

== ENCOUNTER → 2023-08-28 | Outpatient (REF) | payer MEDICARE ==
[2023-08-28 13:03] LABS: HEMATOCRIT 38.1 % (36.0-47.0); HEMOGLOBIN 12.6 g/dl (12.0-15.5); MEAN CORPUSCULAR HGB CONC 33.1 g/dl (32.0-36.5); MEAN CORPUSCULAR VOLUME 93.8 fl (80.0-96.0); PLATELET COUNT, AUTOMATED 225 10^3/uL (150-450); RED BLOOD COUNT 4.06 10^6/uL (4.00-5.40); WHITE BLOOD COUNT 6.8 10^3/uL (4.0-10.0)
[2023-08-28 13:33] LABS: ALBUMIN 3.6 G/DL (3.2-5.2); ALKALINE PHOSPHATASE 40 U/L (46-116); ALT/SGPT 15 U/L (7.0-40); AST/SGOT 15 U/L (<34); BILIRUBIN,TOTAL 0.5 MG/DL (0.3-1.2); BLOOD UREA NITROGEN 17 MG/DL (9-23); CALCIUM LEVEL 9.3 MG/DL (8.3-10.6); CARBON DIOXIDE LEVEL 29 MMOL/L (20-31); CHLORIDE LEVEL 106 MMOL/L (98-107); CREATININE FOR GFR 0.88 MG/DL (0.55-1.30); GLOMERULAR FILTRATION RATE > 60.0 (>32); GLUCOSE, FASTING 85 MG/DL (74-106); POTASSIUM SERUM 4.2 MMOL/L (3.5-5.1); SODIUM LEVEL 141 MMOL/L (136-145); TOTAL PROTEIN 6.5 G/DL (5.7-8.2)
== END ==
LOC: M SFHCADAM 11:31
PROVIDERS: ATTEND Family Medicine
DX: T45.2X1A Poisoning by vitamins, accidental (unintentional), initial encounter (principal); M80.051D Age-related osteoporosis with current pathological fracture, right femur, subsequent encounter for fracture with routine healing

== ENCOUNTER → 2024-01-11 | Outpatient (REF) | payer MEDICARE | LOC: M SFHCDERM 17:49 | PROVIDERS: ATTEND Physician Assistant | DX: C44.311 Basal cell carcinoma of skin of nose (principal) ==

== ENCOUNTER → 2024-03-11 | Outpatient (REF) | payer MEDICARE | LOC: M SFHCADAM 10:57 | PROVIDERS: ATTEND Family Medicine | DX: Z12.11 Encounter for screening for malignant neoplasm of colon (principal); Z12.12 Encounter for screening for malignant neoplasm of rectum ==

== ENCOUNTER → 2024-05-12 | Outpatient (CLI) | payer MEDICARE | LOC: M WHC 10:24 | PROVIDERS: ATTEND Family Medicine | DX: Z12.31 Encounter for screening mammogram for malignant neoplasm of breast (principal) ==

== ENCOUNTER → 2024-09-14 | Outpatient (REF) | payer MEDICARE ==
[2024-09-14 18:27] LABS: MEAN CORPUSCULAR HEMOGLOBIN 30.6 pg (27.0-33.0); MEAN CORPUSCULAR HGB CONC 32.5 g/dl (32.0-36.5); MEAN CORPUSCULAR VOLUME 94.1 fl (80.0-96.0); PLATELET COUNT, AUTOMATED 226 10^3/uL (150-450); RED BLOOD COUNT 4.25 10^6/uL (4.00-5.40); WHITE BLOOD COUNT 6.7 10^3/uL (4.0-10.0)
[2024-09-14 18:50] LABS: ALBUMIN 3.8 G/DL (3.2-5.2); ALKALINE PHOSPHATASE 39 U/L (35-104); ALT/SGPT 11 U/L (7.0-40); AST/SGOT 13 U/L (<34); BILIRUBIN,TOTAL 0.6 MG/DL (0.3-1.2); BLOOD UREA NITROGEN 19 MG/DL (9-23); CALCIUM LEVEL 10.2 MG/DL (8.3-10.6); CARBON DIOXIDE LEVEL 28 MMOL/L (20-31); CHLORIDE LEVEL 106 MMOL/L (98-107); CHOLESTEROL LEVEL 216 MG/DL (<200); CREATININE FOR GFR 0.86 MG/DL (0.55-1.30); GLOMERULAR FILTRATION RATE > 60.0 (>32); GLUCOSE, FASTING 82 MG/DL (74-106); HDL CHOLESTEROL 77.1 MG/DL (>40); LDL CHOLESTEROL 120.9 MG/DL (<100); NON-HDL-C 138.9 MG/DL; POTASSIUM SERUM 4.7 MMOL/L (3.5-5.1); SODIUM LEVEL 141 MMOL/L (136-145); TOTAL PROTEIN 6.9 G/DL (5.7-8.2); TRIGLYCERIDES LEVEL 90 MG/DL (<150)
[2024-09-14 18:53] LABS: FREE T4 1.37 NG/DL (0.89-1.76)
== END ==
LOC: M SFHCADAM 10:48
PROVIDERS: ATTEND Family Medicine
DX: M81.0 Age-related osteoporosis without current pathological fracture (principal); E78.2 Mixed hyperlipidemia

== ENCOUNTER 2024-10-05 12:37 | Day surgery (SDC) | payer MEDICARE ==
[~2024-10-05] VITALS: Ht 160 cm; Wt 51.3 kg
[~2024-10-05 12:37] MED LIST changes: +CALC600T61 PO; +CURC500C PO; +D31000TA PO; +FLAX10002 PO; +MAGN400C PO; +MIDAZOLAM INJ 2MG/2ML VIAL As Ordered ONE; +PRES10CA2 PO
[2024-10-05] MEDS: LIDOCAINE 3.5 % 1ML OPHTH TOPICAL GEL OU ONE (15:13)
[2024-10-05] MEDS ORDERED: propofoL 200 MG/20 ML VIAL As Ordered ONE (16:03)
[2024-10-05] MEDS: LIDOCAINE 2% W/EPINEPHRINE 20ML VIAL **PRES FREE As Ordered ONE (16:23)
[2024-10-05] MEDS: POVIDONE-IODINE 5% OPHTH PREP SOL 30ML As Ordered ONE (16:25)
[2024-10-05] MEDS: TOBRADEX OPHTH OINT 3.5 GM As Ordered ONE (16:36)
[2024-10-05 16:43] VITALS: BP 117/56; TEMP 97.9; O2SAT 99
== END 2024-10-05 17:15 | disposition home or self-care (01) ==
LOC: M SDC 12:37
PROVIDERS: ATTEND Ophthalmology
DX: H02.002 Unspecified entropion of right lower eyelid (principal)
CPT/HCPCS: 67924; J2250

== ENCOUNTER → 2025-06-06 | Outpatient (REF) | payer MEDICARE ==
[~2025-06-06] MED LIST changes: -MIDAZOLAM INJ 2MG/2ML VIAL As Ordered ONE
[2025-06-06 14:06] LABS: ALT/SGPT 13.0 U/L (7.0-40); AST/SGOT 20.0 U/L (<34); CALCIUM LEVEL 9.7 MG/DL (8.3-10.6); CARBON DIOXIDE LEVEL 31.0 MMOL/L (20-31); CHLORIDE LEVEL 106.0 MMOL/L (98-107); CREATININE FOR GFR 0.96 MG/DL (0.55-1.30); GLOMERULAR FILTRATION RATE 58.3 (>32); PLATELET COUNT, AUTOMATED 258 10^3/uL (150-450); POTASSIUM SERUM 4.9 MMOL/L (3.5-5.1); SODIUM LEVEL 144.0 MMOL/L (136-145)
[2025-06-06 14:10] LABS: FREE T4 1.29 NG/DL (0.89-1.76)
[2025-06-06 14:12] LABS: TOTAL 25(OH) VITAMIN D 62.1 NG/ML (20.0-100.0)
== END ==
LOC: M SFHCADAM 10:29
PROVIDERS: ATTEND Family Medicine
DX: F41.9 Anxiety disorder, unspecified (principal); H91.91 Unspecified hearing loss, right ear; M81.0 Age-related osteoporosis without current pathological fracture; Z79.899 Other long term (current) drug therapy

== ENCOUNTER 2025-06-21 11:21 | Outpatient (CLI) | payer MEDICARE ==
[~2025-06-21] VITALS: Ht 167.6 cm; Wt 51.8 kg
[2025-06-21] MEDS: ZOLEDRONIC ACID 5 MG in IV 1 EA IV ONE (11:59)
[2025-06-21 12:00] VITALS: BP 130/76; O2SAT 97
[2025-06-21 12:35] VITALS: BP 140/75; O2SAT 99
== END 2025-06-21 12:35 | disposition home or self-care (01) ==
LOC: M INFU 11:21
PROVIDERS: ATTEND Family Medicine
DX: M80.051D Age-related osteoporosis with current pathological fracture, right femur, subsequent encounter for fracture with routine healing (principal)
CPT/HCPCS: 96365; J3489

== ENCOUNTER → 2025-09-14 | Outpatient (CLI) | payer MEDICARE | LOC: M ADAMS 10:57 | PROVIDERS: ATTEND Family Medicine | DX: M51.360 Other intervertebral disc degeneration, lumbar region with discogenic back pain only (principal) ==

== ENCOUNTER → 2025-09-19 | Outpatient (CLI) | payer MEDICARE | LOC: M RAD 14:40 | PROVIDERS: ATTEND Family Medicine | DX: M51.360 Other intervertebral disc degeneration, lumbar region with discogenic back pain only (principal); M51.34 Other intervertebral disc degeneration, thoracic region ==